=== PATIENT | male | born 1960 | race Caucasian/White ===

== ENCOUNTER 2022-03-24 06:41 | Day surgery (SDC) | payer OTHER ==
[2022-03-23 10:27] VITALS: BMI 24.7
[~2022-03-24 06:41] MED LIST: LACTATED RINGERS 1,000 ML IV SCH
[2022-03-24 07:25] VITALS: TEMP 98
[2022-03-24] MEDS ORDERED: PROPOFOL 10 MG/ML 20 ML VIAL IV ONE (08:29)
[2022-03-24] MEDS ORDERED: LIDOCAINE 2% INJ 20 MG/ML (2 ML VIAL) ONE (08:29)
--- NOTE | 2022-03-24 08:42 | P.PCN ---
Date of Procedure: 03/24/22 Procedure(s) Performed: BRIEF HISTORY: Patient is a 61-year-old pleasant white male scheduled for an elective colonoscopy as a part of screening for colorectal neoplasia. PROCEDURE PERFORMED: Colonoscopy. PREOPERATIVE DIAGNOSIS: Screening for colon cancer. IV sedation per Anesthesia. PROCEDURE: After informed consent was obtained, the patient, was brought into the endoscopy unit. IV sedation was administered by Anesthesia under continuous monitoring. Digital rectal examination was normal. Initially the Olympus CF-160 flexible video colonoscope was then inserted in the rectum, gradually advanced into the cecum without any difficulty. Careful examination was performed as the scope was gradually being withdrawn. Ileocecal valve and the appendiceal orifice were visualized and appeared normal. Prep was excellent. Mucosa of the cecum, ascending colon, transverse colon, descending colon, sigmoid colon, and rectum appeared normal. Scattered sigmoid diverticulosis. Retroflexion was performed in the rectum and no lesions were seen. The patient tolerated the procedure well. IMPRESSION: Normal-appearing colon from rectum to cecum with no evidence of colorectal neoplasia . Scattered sigmoid diverticulosis. RECOMMENDATIONS: Findings of this examination were discussed with the patient a s well as his family. He was advised to have a repeat screening colonoscopy in 10 years..
[2022-03-24] MEDS ORDERED: IV FLUID CONTINUATION 600 ML IV ONE (08:45)
[2022-03-24 08:48] VITALS: RESP 16
[2022-03-24 09:02] VITALS: BP 130/77; PULSE 59
== END 2022-03-24 09:20 | disposition home or self-care (01) ==
LOC: ORWHC2ENDO 06:41
PROVIDERS: ATTEND Internal Medicine Gastroenterology
DX: Z12.11 Encounter for screening for malignant neoplasm of colon (principal); K57.30 Diverticulosis of large intestine without perforation or abscess without bleeding; I10 Essential (primary) hypertension; Z88.8 Allergy status to other drugs, medicaments and biological substances
CPT/HCPCS: 45378; J2704; J2001

== ENCOUNTER → 2024-03-13 | Outpatient (CLI) | payer MEDICARE ==
[~2024-03-13] MED LIST changes: -LACTATED RINGERS 1,000 ML IV SCH; +SODIUM CHLORIDE 0.9% 500 ML 500 ML in EMPTY BAG 1 BAG IV PRN
[2024-03-13 10:34] VITALS: RESP 16; TEMP 98
[2024-03-13 11:11] LABS: Basophils % (A) 1 %; Eosinophils # (A) 0.2 k/uL (0-0.7); Eosinophils % (A) 5 %; HCT 45.5 % (39.0-53.0); HGB 15.4 gm/dL (13.0-17.5); Lymphocytes # (A) 1.2 k/uL (1.0-4.8); Lymphocytes % (A) 40 %; MCH 33.1 pg (25.0-35.0); MCHC 33.8 g/dL (31.0-37.0); MCV 97.9 fL (80.0-100.0); Mean Platelet Volume 8.3; Monocytes # (A) 0.3 k/uL (0-1.0); Monocytes % (A) 9 %; Neutrophils # (A) 1.2 k/uL (1.3-7.7); Neutrophils % (A) 40 %; Platelet Count 190 k/uL (150-450); RBC 4.65 m/uL (4.30-5.90)
[2024-03-13 11:55] VITALS: BP 125/79; PULSE 59
== END ==
LOC: PROCWHC3 10:22
PROVIDERS: ATTEND Internal Medicine Hematology & Oncology
DX: R79.89 Other specified abnormal findings of blood chemistry (principal)
CPT/HCPCS: 36415; 85025; 99195

== ENCOUNTER → 2024-04-03 | Outpatient (CLI) | payer MEDICARE ==
--- NOTE | 2024-04-03 14:05 | CTL ---
EXAMINATION TYPE: CT Low Dose Lung DATE OF EXAM ORDERED: 04/03/2024 COMPARISON: Chest radiograph 10/17/2021 CLINICAL INDICATION: Male, 63 years old with history of Z12.2, Z87.891; PHH, personal hx of nicotine dependence 1ppd X 30 years not current smoker, Lung cancer screening, History of Smoking/tobacco use. TECHNIQUE: Low dose computed tomography scan was performed through the chest at 1 mm thick sections a nd reconstructed images in multiple planes at 1 mm and [address] DLP: 85.[address] CTDI: 2.3 mGy Automated exposure control for dose reduction was used. CT DIAGNOSTIC QUALITY: Satisfactory FINDINGS: Nodules: Few scattered calcified granulomas. No clinically significant pulmonary nodule. LUNGS: COPD: Severity: None Fibrosis: Severity: None Lymph nodes: None Other findings: Medial right middle lobe linear scarring and/or atelectasis. RIGHT PLEURAL SPACE: Effusion: None Calcification: None Thickening: None Pneumothorax: None LEFT PLEURAL SPACE: Effusion: None Calcification: None Thickening: None Pneumothorax: None HEART: Heart Size: Normal Coronary Calcification: Small Pericardial Effusion: None OTHER FINDINGS: Upper abdomen: None Bony thorax: Mild hypertrophic changes of the thoracic spine. Supraclavicular region: None Other: None IMPRESSION: No clinically significant pulmonary nodules. CT LUNG RAD AND CT CHEST RECOMMENDATION: Lung-Rad 2 Benign Appearance or Behavior: Continue annual sc reening with LDCT in 12 months. S Modifier (other clinically significant findings): None [facility], , 04/03/2024 2:03 PM
== END | disposition home or self-care (01) ==
LOC: RADCTMAIN 13:08
PROVIDERS: ATTEND Family Medicine
DX: Z12.2 Encounter for screening for malignant neoplasm of respiratory organs (principal); J84.10 Pulmonary fibrosis, unspecified; Z87.891 Personal history of nicotine dependence
CPT/HCPCS: 71271

== ENCOUNTER → 2024-06-14 | Outpatient (CLI) | payer MEDICARE ==
[~2024-06-14] MED LIST changes: +SODIUM CHLORIDE 0.9% 250 ML in EMPTY BAG 1 BAG IV PRN
[2024-06-14 10:48] VITALS: RESP 16; TEMP 97.8
[2024-06-14 11:15] LABS: HCT 44.8 % (39.0-53.0); MCH 32.5 pg (25.0-35.0); MCHC 33.4 g/dL (31.0-37.0); MCV 97.3 fL (80.0-100.0); Mean Platelet Volume 8.1; Platelet Count 172 k/uL (150-450); RBC 4.61 m/uL (4.30-5.90); RDW 13.8 % (11.5-15.5); WBC 2.9 k/uL (3.8-10.6)
[2024-06-14 11:26] LABS: Basophils # (M) 0.03 k/uL (0-0.2); Lymphocytes # (M) 1.36 k/uL (1.0-4.8); Monocytes # (M) 0.23 k/uL (0-1.0); Neutrophils # (M) 1.07 k/uL (1.3-7.7); Neutrophils % (M) 37 %; Nucleated Red Blood Cells 0 /100 WBC (0-0); RBC Morphology Normal; Total Cells Counted 100
[2024-06-14 11:54] VITALS: BP 115/77; PULSE 71
== END ==
LOC: PROCWHC3 10:37
PROVIDERS: ATTEND Internal Medicine Hematology & Oncology
DX: R79.89 Other specified abnormal findings of blood chemistry (principal); D72.819 Decreased white blood cell count, unspecified
CPT/HCPCS: 36415; 85025; 99195

== ENCOUNTER → 2024-06-26 | Outpatient (CLI) | payer MEDICARE ==
--- NOTE | 2024-06-26 09:48 | US ---
EXAMINATION TYPE: US liver DATE OF EXAM: 06/26/2024 COMPARISON: NONE CLINICAL INDICATION: Male, 64 years old with history of R79.89 ABNORMAL FERITAN; abnormal labs TECHNIQUE: Grayscale and color Doppler imaging of the right upper quadrant was performed. FINDINGS: EXAM MEASUREMENTS: Liver Length: 13.7 cm Gallbladder Wall: 0.23 cm CBD: 0.37 cm Right Kidney: 10.1 x 5.0 x 4.5 cm Pancreas: Most of the pancreas is seen and shows no gross abnormality. Liver: wnl Gallbladder: wnl Evidence for sonographic Marshall's sign: No CBD: wnl Right Kidney: wnl IMPRESSION: Unremarkable sonographic examination of the right upper quadrant. [facility], Workstation: [email or web address], 06/26/2024 9:45 AM
== END | disposition home or self-care (01) ==
LOC: RADUSWWP 09:17
PROVIDERS: ATTEND Internal Medicine Hematology & Oncology
DX: D72.819 Decreased white blood cell count, unspecified (principal); R79.89 Other specified abnormal findings of blood chemistry; I10 Essential (primary) hypertension
CPT/HCPCS: 76705

== ENCOUNTER → 2024-09-13 | Outpatient (CLI) | payer MEDICARE ==
[2024-09-13 10:44] VITALS: RESP 16; TEMP 98.4
[2024-09-13 11:59] VITALS: BP 125/75; PULSE 84
[2024-09-13 12:03] LABS: HCT 42.3 % (39.6-50.0); HGB 14.5 g/dL (13.0-17.0); MCH 32.8 pg (27.0-32.0); MCHC 34.3 g/dL (32.0-37.0); MCV 95.7 fL (80.0-97.0); Mean Platelet Volume 11.7 fL (9.5-12.2); Platelet Count 158 10*3/uL (140-440); RBC 4.42 10*6/uL (4.40-5.60); RDW 13.2 % (11.5-14.5); WBC 2.26 10*3/uL (4.50-10.00)
== END ==
LOC: PROCWHC3 10:27
PROVIDERS: ATTEND Internal Medicine Hematology & Oncology
DX: D72.819 Decreased white blood cell count, unspecified (principal)
CPT/HCPCS: 36415; 85027; 99195

== ENCOUNTER → 2024-12-10 | Outpatient (CLI) | payer MEDICARE ==
[2024-12-10 10:48] VITALS: RESP 16; TEMP 98.1
[2024-12-10 11:02] LABS: Basophils # (A) 0.08 10*3/uL (0.00-0.10); Basophils % (A) 3.0 %; Eosinophils # (A) 0.15 10*3/uL (0.04-0.35); Eosinophils % (A) 5.6 %; HCT 42.2 % (39.6-50.0); HGB 14.4 g/dL (13.0-17.0); Lymphocytes # (A) 1.34 10*3/uL (0.90-5.00); Lymphocytes % (A) 50.0 %; MCH 32.6 pg (27.0-32.0); MCHC 34.1 g/dL (32.0-37.0); MCV 95.5 fL (80.0-97.0); Monocytes # (A) 0.36 10*3/uL (0.20-1.00); Monocytes % (A) 13.4 %; Neutrophils # (A) 0.75 10*3/uL (1.80-7.70); Neutrophils % (A) 28.0 %; Platelet Count 184 10*3/uL (140-440); RBC 4.42 10*6/uL (4.40-5.60); RDW 13.2 % (11.5-14.5); WBC 2.68 10*3/uL (4.50-10.00)
[2024-12-10 11:33] VITALS: BP 120/75; PULSE 61
== END ==
LOC: PROCWHC3 10:32
PROVIDERS: ATTEND Internal Medicine Hematology & Oncology
DX: D72.819 Decreased white blood cell count, unspecified (principal)
CPT/HCPCS: 36415; 85025; 99195